=== PATIENT | female | born 1935 | race Caucasian/White ===

== ENCOUNTER 2017-12-01 17:58 | Inpatient (IN) | payer MEDICARE ==
[~2017-12-01] VITALS: Ht 149.8 cm; Wt 82.1 kg
[2017-12-01 17:59] VITALS: BP 125/82
[2017-12-01] MEDS ORDERED: COUMADIN1 M1 PO (18:04)
[2017-12-01] MEDS ORDERED: ALBUTEROL S5 MG/1 ML INH (18:05)
[2017-12-01 18:30] VITALS: BP 134/85
[2017-12-01 18:53] LABS: BASO % 0.3 % (0.0-1.0); EOS # 0.1 10*3/uL (0.0-0.4); EOS % 1.9 % (1.0-4.0); HEMATOCRIT 38.1 % (37.0-47.0); LYMPH # 1.3 10*3/uL (1.3-4.4); LYMPH % 22.8 % (27.0-41.0); MEAN CELL VOLUME 97.7 fl (81.0-99.0); MEAN CORPUSCULAR HGB 30.8 pg (27.0-31.0); MEAN CORPUSCULAR HGB CONC 31.5 g/dl (33.0-37.0); MEAN PLATELET VOLUME 10.3 fl (9.6-12.3); MONO # 0.6 10*3/uL (0.1-1.0); MONO % 10.1 % (3.0-9.0); NEUT # 3.8 10*3/uL (2.3-7.9); NEUT % 64.6 % (47.0-73.0); PLATELET COUNT AUTOMATED 159 10*3/uL (130-400); RED CELL DISTRI WIDTH 13.7 % (0-14.5); WHITE BLOOD COUNT 5.8 10*3/uL (4.8-10.8)
[2017-12-01 19:00] VITALS: BP 118/39
[2017-12-01 19:20] LABS: ALBUMIN 3.3 gm/dl (3.1-4.5); ALKALINE PHOSPHATASE 41 U/L (45-117); BUN 24 mg/dl (7-24); CHLORIDE 97 mmol/L (98-107); CREATININE 1.02 mg/dL (0.55-1.02); POTASSIUM 4.1 mmol/L (3.5-5.1); SGOT/AST 20 IU/L (3-35); SGPT/ALT 20 U/L (12-78); SODIUM 139 mmol/L (136-145); TOTAL PROTEIN 6.6 gm/dL (6.4-8.2)
[2017-12-01 19:21] LABS: TROPONIN I < 0.015 ng/ml (<0.045)
[2017-12-01 19:34] LABS: INTERNATIONAL NORM RATIO 4.2 (2.0-3.5)
[2017-12-01 20:00] VITALS: BP 117/67
[2017-12-01 20:20] LABS: BILIRUBIN NEGATIVE (NEGATIVE); BLOOD NEGATIVE (NEGATIVE); CLARITY CLEAR (CLEAR); COLOR YELLOW (YELLOW); GLUCOSE NEGATIVE (NEGATIVE); KETONE NEGATIVE (NEGATIVE); LEUKO ESTERASE TRACE (NEGATIVE); NITRITE NEGATIVE (NEGATIVE); PH 6.5 (5.0-9.0); UROBILINOGEN 0.2 E.U./dl (0.2-1.0)
[2017-12-01 20:30] VITALS: BP 109/62
[2017-12-01 20:45] LABS: HYALINE CAST 31-40
[2017-12-01] MEDS ORDERED: DIGITEK125 MCG PO (20:47)
[2017-12-01] MEDS ORDERED: METOPROLOL TART50 M1 PO (20:47)
[2017-12-01] MEDS ORDERED: LISINOPRIL10 M1 PO (20:47)
[2017-12-01] MEDS ORDERED: POTASSIUM CHLO20 ME4 PO (20:48)
[2017-12-01] MEDS ORDERED: BUMETANIDE2 MG PO (20:48)
[2017-12-01] MEDS ORDERED: SIMVASTATIN20 MG PO (20:48)
[2017-12-01] MEDS ORDERED: GABAPENTIN100 M2 PO (20:48)
[2017-12-01 20:49] LABS: BACTERIA TRACE; CALCIUM OXALATE CRYSTALS 1+
[2017-12-01 21:00] VITALS: BP 108/55
[2017-12-01] MEDS ORDERED: VITAMIN D5000 UNI1 PO (22:28)
[2017-12-01] MEDS ORDERED: ASPIRIN CHEWABL81 MG PO (22:29)
[2017-12-02] VITALS: BP 117/79
[2017-12-02 06:23] LABS: ALBUMIN 3.2 gm/dl (3.1-4.5); BUN 22 mg/dl (7-24); CHLORIDE 98 mmol/L (98-107); CHOLESTEROL 152 mg/dL (<200); CREATININE 0.97 mg/dL (0.55-1.02); PHOSPHOROUS 2.5 mg/dL (2.5-4.9); POTASSIUM 3.8 mmol/L (3.5-5.1); SGOT/AST 20 IU/L (3-35); SGPT/ALT 19 U/L (12-78); SODIUM 140 mmol/L (136-145); TRIGLYCERIDES 173 mg/dl (<150); VLDL CHOLESTEROL 35 mg/dL (6-40)
[2017-12-02 06:30] LABS: ALKALINE PHOSPHATASE 40 U/L (45-117); HDL CHOLESTEROL 42 mg/dl (40-60); LDL CHOLESTEROL 75 mg/dL (9-159); THYROID STIM HORMONE (HS) 0.513 uIU/ml (0.358-4.75); TOTAL PROTEIN 6.2 gm/dL (6.4-8.2)
[2017-12-02 06:39] LABS: BASO % 0.6 % (0.0-1.0); EOS # 0.1 10*3/uL (0.0-0.4); EOS % 2.6 % (1.0-4.0); HEMATOCRIT 38.4 % (37.0-47.0); HEMOGLOBIN 11.8 g/dl (12.0-16.0); LYMPH # 1.6 10*3/uL (1.3-4.4); LYMPH % 31.4 % (27.0-41.0); MEAN CORPUSCULAR HGB 30.4 pg (27.0-31.0); MEAN CORPUSCULAR HGB CONC 30.7 g/dl (33.0-37.0); MEAN PLATELET VOLUME 10.9 fl (9.6-12.3); MONO # 0.6 10*3/uL (0.1-1.0); MONO % 11.4 % (3.0-9.0); NEUT # 2.7 10*3/uL (2.3-7.9); NEUT % 53.8 % (47.0-73.0); PLATELET COUNT AUTOMATED 166 10*3/uL (130-400); RED BLOOD COUNT 3.88 10*6/uL (4.10-5.10); RED CELL DISTRI WIDTH 14.1 % (0-14.5); WHITE BLOOD COUNT 5.1 10*3/uL (4.8-10.8)
[2017-12-02 06:42] LABS: INTERNATIONAL NORM RATIO 3.2 (2.0-3.5)
[2017-12-02 08:00] VITALS: BP 137/74
[2017-12-02 12:00] VITALS: BP 111/67
[2017-12-02] MEDS ORDERED: COUMADIN2 M1 PO (14:34)
== END 2017-12-02 15:15 | disposition home or self-care (01) | DRG 189 ==
LOC: ED 17:58 → EDHOLD 20:27 → 4E 20:27
PROVIDERS: Family Medicine; Nurse Practitioner Family
DX: J96.21 Acute and chronic respiratory failure with hypoxia (principal); G93.41 Metabolic encephalopathy; I48.2 Chronic atrial fibrillation; Z99.81 Dependence on supplemental oxygen; J98.11 Atelectasis; J44.9 Chronic obstructive pulmonary disease, unspecified; E55.9 Vitamin D deficiency, unspecified; D64.9 Anemia, unspecified; I11.9 Hypertensive heart disease without heart failure; Z87.440 Personal history of urinary (tract) infections; Z79.01 Long term (current) use of anticoagulants; Z87.891 Personal history of nicotine dependence; Z82.49 Family history of ischemic heart disease and other diseases of the circulatory system; Z79.899 Other long term (current) drug therapy; Z79.82 Long term (current) use of aspirin